=== PATIENT | male | born 1935 | race American Indian/Alaskan Native ===

== ENCOUNTER 2018-06-17 00:18 | Inpatient (IN) | payer MEDICARE ==
[2018-06-17] MEDS ORDERED: ASPIRIN PO ONE (00:49)
--- NOTE | 2018-06-17 01:08 | Emergency Department Report ---
ED Chest Pain HPI - General Chief Complaint: Chest Pain Stated Complaint: VLADIMIR Time Seen by Provider: 06/17/18 00:57 Source: patient, EMS Mode of arrival: Stretcher Limitations: No Limitations - History of Present Illness Initial Comments: Patient is a 83 years old male with history of congestive heart failure, CVA, hypertension and diabetes. Patient brought to the emergency room via EMS. EMS stated that patient initial heart rate was 220 with a blood pressure of 85/43. Patient was given 6 and 12 mg of adenosine and patient was shocked one time at 100 J with no change by EMS. Patient converted to sinus rhythm with a heart rate of 90 by the time he arrived to the emergency room. MD Complaint: chest pain Severity scale (0 -10): 4 - Related Data Previous Rx's Medication Instructions Recorded Last Taken Type Albuterol *Only Ed* [Proventil 2.5 mg IH TIDRT PRN #10 nebu 12/16/14 Unknown Rx 0.5% NEBS] Arformoterol Nebu [Brovana Nebu] 15 mcg IH Q12HRT #10 ml 12/16/14 Unknown Rx Budesonide [Pulmicort Respules] 0.5 mg IH Q12HRT #30 nebu 12/16/14 Unknown Rx Carvedilol [Coreg] 6.25 mg PO BID #60 tablet 12/16/14 Unknown Rx Famotidine [Pepcid] 20 mg PO BID #60 tablet 12/16/14 Unknown Rx Furosemide [Lasix TAB] 40 mg PO QDAY #30 tablet 12/16/14 Unknown Rx HYDROcodone/APAP 5-325 [[place] 1 each PO Q6H PRN #30 tablet 12/16/14 Unknown Rx 5-325 mg TAB] Spironolactone [Aldactone] 12.5 mg PO QDAY #30 tablet 12/16/14 Unknown Rx Tiotropium [Spiriva] 1 puff IH Q24HRT #10 box 12/16/14 Unknown Rx Albuterol *Only Ed* [Proventil 2.5 mg IH TIDRT nebu 07/22/15 Unknown Rx 0.5% NEBS] Carvedilol [Coreg] 6.25 mg PO BID tablet 07/22/15 Unknown Rx Furosemide [Lasix TAB] 40 mg PO QDAY tablet 07/22/15 Unknown Rx metOLazone [Zaroxolyn] 2.5 mg PO QDAY tablet 07/22/15 Unknown Rx Allergies Allergy/AdvReac Type Severity Reaction Status Date / Time Sulfa (Sulfonamide AdvReac Unknown Verified 03/02/13 06:40 Antibiotics) Heart Score - HEART Score History: Moderately suspicious EKG: Non-specific Age: > 65 Risk factors: > 3 risk factors or hx of atherosclerotic disease Troponin: < normal limit HEART Score: 6 - Critical Actions Critical Actions: 4-6 pts:12-16.6% risk of adverse cardiac event. Should be admitted ED Review of Systems ROS: Stated complaint: VLADIMIR Other details as noted in HPI Comment: All other systems reviewed and negative Constitutional: denies: chills, fever Respiratory: orthopnea, shortness of breath, SOB with exertion, SOB at rest. denies: cough, wheezing Cardiovascular: chest pain, palpitations Gastrointestinal: denies: abdominal pain, nausea, vomiting, diarrhea, constipation, hematemesis, melena, hematochezia Genitourinary: denies: urgency, dysuria, frequency, hematuria, discharge Musculoskeletal: denies: back pain Neurological: denies: headache, weakness, numbness, paresthesias, confusion ED Past Medical Hx - Past Medical History Previous Medical History?: Yes Hx Hypertension: Yes Hx CVA: Yes (TIA 12 years ago) Hx Heart Attack/AMI: No Hx Congestive Heart Failure: Yes Hx Diabetes: Yes Hx Deep Vein Thrombosis: Yes Hx Pulmonary Embolism: Yes Hx Sickle Cell Disease: No Hx Headaches / Migraines: No Hx Seizures: No Hx Asthma: Yes Hx COPD: Yes Hx Tuberculosis: No Hx Dementia: No Hx HIV: No Additional medical history: pt wears life vest for defibrillator - Surgical History Past Surgical History?: Yes Hx Coronary Stent: No Hx Pacemaker: No Hx Internal Defibrillator: No Additional Surgical History: Chest tube for pneumothorax - Social History Smoking Status: Never Smoker Substance Use Type: Prescribed - Medications Home Medications: Home Medications Medication Instructions Recorded Confirmed Last Taken Type Albuterol *Only Ed* [Proventil 2.5 mg IH TIDRT PRN #10 nebu 12/16/14 07/21/15 Unknown Rx 0.5% NEBS] Arformoterol Nebu [Brovana Nebu] 15 mcg IH Q12HRT #10 ml 12/16/14 07/21/15 Unknown Rx Budesonide [Pulmicort Respules] 0.5 mg IH Q12HRT #30 nebu 12/16/14 07/21/15 Unknown Rx Carvedilol [Coreg] 6.25 mg PO BID #60 tablet 12/16/14 07/21/15 Unknown Rx Famotidine [Pepcid] 20 mg PO BID #60 tablet 12/16/14 07/21/15 Unknown Rx Furosemide [Lasix TAB] 40 mg PO QDAY #30 tablet 12/16/14 07/21/15 Unknown Rx HYDROcodone/APAP 5-325 [[place] 1 each PO Q6H PRN #30 tablet 12/16/14 07/21/15 Unknown Rx 5-325 mg TAB] Spironolactone [Aldactone] 12.5 mg PO QDAY #30 tablet 12/16/14 07/21/15 Unknown Rx Tiotropium [Spiriva] 1 puff IH Q24HRT #10 box 12/16/14 07/21/15 Unknown Rx Albuterol *Only Ed* [Proventil 2.5 mg IH TIDRT nebu 07/22/15 Unknown Rx 0.5% NEBS] Carvedilol [Coreg] 6.25 mg PO BID tablet 07/22/15 Unknown Rx Furosemide [Lasix TAB] 40 mg PO QDAY tablet 07/22/15 Unknown Rx metOLazone [Zaroxolyn] 2.5 mg PO QDAY tablet 07/22/15 Unknown Rx ED Physical Exam - General Limitations: No Limitations General appearance: alert, in no apparent distress - Head Head exam: Present: atraumatic, normocephalic, normal inspection - Eye Eye exam: Present: normal appearance - ENT ENT exam: Present: mucous membranes moist - Neck Neck exam: Present: normal inspection, full ROM. Absent: tenderness, meningismus - Respiratory Respiratory exam: Present: normal lung sounds bilaterally - Cardiovascular Cardiovascular Exam: Present: regular rate. Absent: systolic murmur, diastolic murmur - GI/Abdominal GI/Abdominal exam: Present: soft, normal bowel sounds. Absent: distended, tenderness, guarding, rebound, rigid, organomegaly, mass, bruit, pulsatile mass - Extremities Exam Extremities exam: Present: normal inspection, full ROM, normal capillary refill. Absent: pedal edema, calf tenderness - Back Exam Back exam: Present: normal inspection. Absent: CVA tenderness (R), CVA tenderness (L) - Neurological Exam Neurological exam: Present: alert, altered, CN II-XII intact - Skin Skin exam: Present: warm, intact, normal color ED Course Vital Signs 06/17/18 06/17/18 06/17/18 00:22 00:30 00:37 Temperature 98.5 F Pulse Rate 94 H 103 H 98 H Respiratory 34 H 24 22 Rate Blood Pressure 117/80 117/59 O2 Sat by Pulse 98 Oximetry 06/17/18 06/17/18 06/17/18 00:45 00:46 01:00 Temperature Pulse Rate 91 H 90 Respiratory 33 H 22 34 H Rate Blood Pressure 112/68 109/71 O2 Sat by Pulse 98 Oximetry 06/17/18 01:15 Temperature Pulse Rate 86 Respiratory 28 H Rate Blood Pressure 107/63 O2 Sat by Pulse Oximetry GENTRY score - Genrty Score Age > 65: (1) Yes Aspirin use within the Past 7 Days: (1) Yes 3 or more CAD Risk Factors: (0) No 2 or more Angina events in past 24 hrs: (1) Yes Known CAD with more than 50% Stenosis: (0) No Elevated Cardiac Markers: (0) No ST Deviation Greater than 0.5mm: (0) No GENTRY Score: 3 ED Medical Decision Making - Lab Data Result diagrams: 06/17/18 00:58 06/17/18 00:58 - EKG Data -: EKG Interpreted by Mi EKG shows normal: sinus rhythm Rate: normal - EKG Data Interpretation: no acute changes 06/17/18 03:02 EMS EKG showed atrial flutter with RVR. - Medical Decision Making Patient is a 83 years old male with history of congestive heart failure, CVA, hypertension and diabetes. Patient brought to the emergency room via EMS. EMS stated that patient initial heart rate was 220 with a blood pressure of 85/43. Patient was given 6 and 12 mg of adenosine and patient was shocked one time at 100 J with no change by EMS. Patient converted to sinus rhythm with a heart rate of 90 by the time he arrived to the emergency room. Patient remained stable in the ER with sinus rhythm. Patient is started on a Cardizem drip. I discussed the patient was Dr. Everett from cardiology was advised that he will follow-up with the patient. I also discussed the patient is Dr. Lynn Laird, she agreed to admit the patient to medical service. Critical Care Time: Yes Critical care attestation.: If time is entered above; I have spent that time in minutes in the direct care of this critically ill patient, excluding procedure time. ED Disposition Clinical Impression: Atrial flutter with rapid ventricular response, Chest pain, Shortness of breath Disposition: OP ADMIT IP TO THIS HOSP Is pt being admited?: Yes Condition: Stable Instructions: Chest Pain (ED)
--- NOTE | 2018-06-17 01:16 | XRay Report ---
PROCEDURE: XR CHEST 1V AP TECHNIQUE: A portable upright view of the chest was obtained. HISTORY: Chest Pain COMPARISONS: None FINDINGS: The heart is mild to moderately enlarged. The lungs are not overtly congested. There is nonspecific p atchy airspace disease in the lower lobes. A small left-sided effusion cannot be excluded. The skelet al structures reveal osteoporosis. IMPRESSION: Cardiomegaly.. No evidence of congestion. Patchy airspace disease in both lower lobes. Possible small left-sided effusion. . This document is electronically signed by Bayron Glover MD., June 17 2018 01:14:53 AM ET
[2018-06-17 01:25] LABS: Basophils % (Auto) 0.2 % (0.0-1.8); Eosinophils % (Auto) 0.4 % (0.0-4.3); Hematocrit 36.5 % (35.5-45.6); Lymphocytes % (Auto) 11.8 % (13.4-35.0); Mean Corpuscular HGB Conc 33 % (32-34); Mean Corpuscular Volume 104 fl (84-94); Monocytes # (Auto) 0.9 K/mm3 (0.0-0.8); Monocytes % (Auto) 11.1 % (0.0-7.3); Platelet Count 215 K/mm3 (140-440); Red Blood Count 3.52 M/mm3 (3.65-5.03)
[2018-06-17 01:34] LABS: INR 1.13 (0.87-1.13)
[2018-06-17 01:35] LABS: Partial Thromboplastin Time 33.3 Sec. (24.2-36.6)
[2018-06-17 01:48] LABS: Calcium 8.6 mg/dL (8.4-10.2)
[2018-06-17] MEDS ORDERED: CARDIZEM 100 MG in D5W 80 ML IV SCH (02:00)
[2018-06-17] MEDS ORDERED: NACL 0.9% 500 ML 500 ML ONE (02:42)
[2018-06-17 06:34] LABS: Chol/HDL Ratio 3.6 %
--- NOTE | 2018-06-17 10:08 | Consultation ---
History of Present Illness Consult date: 06/17/18 Requesting physician: GRABIEL SANCHEZ Consult reason: chest pain, elevated troponin, tachycardia History of present illness: The pt is an 83 YO male with a past medical history of severe dilated CMP, chronic HFrEF, CVA, HTN, HLP, DM, DVT, PE, paroxysmal AFib, NSVT, Alzheimer's dementia. He is followed in our office by Dr. Dickens. Pt is reportedly on hospice and is DNR code status per primary RN. Per our office records, pt and pt's have agreed to conservative cardiac management. Pt states "I'm confused" and also reports SOB. He is a poor historian due to dementia and thus HPI is obtained per the chart. Patient brought to the emergency room via EMS. EMS stated that patient initial heart rate was 220 with a blood pressure of 85/43. Patient was given 6 and 12 mg of adenosine and patient was shocked one time at 100 J with no change by EMS. Patient converted to sinus rhythm with a heart rate of 90 by the time he arrived to the emergency room. No strips on chart available for review. Pt was initiated on cardizem gtt overnight and has maintained NSR. Echo done 03/2014 showed severe dilated CMP with 4 chamber dilation, EF 10%, severe MR, moderately severe TR, pulm HTN with RVSP 62mmHg, trace pericardial effusion, left pleural effusion. Past History Past Medical History: diabetes, DVT, heart failure, hypertension, hyperlipidemia, pulmonary embolism, other (dementia) Medications and Allergies Allergies Allergy/AdvReac Type Severity Reaction Status Date / Time Sulfa (Sulfonamide AdvReac Unknown Verified 03/02/13 06:40 Antibiotics) Home Medications Medication Instructions Recorded Confirmed Last Taken Type Albuterol *Only Ed* [Proventil 2.5 mg IH TIDRT PRN #10 nebu 12/16/14 07/21/15 Unknown Rx 0.5% NEBS] Arformoterol Nebu [Brovana Nebu] 15 mcg IH Q12HRT #10 ml 12/16/14 07/21/15 Unknown Rx Budesonide [Pulmicort Respules] 0.5 mg IH Q12HRT #30 nebu 12/16/14 07/21/15 Unknown Rx Carvedilol [Coreg] 6.25 mg PO BID #60 tablet 12/16/14 07/21/15 Unknown Rx Famotidine [Pepcid] 20 mg PO BID #60 tablet 12/16/14 07/21/15 Unknown Rx Furosemide [Lasix TAB] 40 mg PO QDAY #30 tablet 12/16/14 07/21/15 Unknown Rx HYDROcodone/APAP 5-325 [[place] 1 each PO Q6H PRN #30 tablet 12/16/14 07/21/15 Unknown Rx 5-325 mg TAB] Spironolactone [Aldactone] 12.5 mg PO QDAY #30 tablet 12/16/14 07/21/15 Unknown Rx Tiotropium [Spiriva] 1 puff IH Q24HRT #10 box 12/16/14 07/21/15 Unknown Rx Albuterol *Only Ed* [Proventil 2.5 mg IH TIDRT nebu 07/22/15 Unknown Rx 0.5% NEBS] Carvedilol [Coreg] 6.25 mg PO BID tablet 07/22/15 Unknown Rx Furosemide [Lasix TAB] 40 mg PO QDAY tablet 07/22/15 Unknown Rx metOLazone [Zaroxolyn] 2.5 mg PO QDAY tablet 07/22/15 Unknown Rx Active Meds: Active Medications Diltiazem HCl 100 mg/ Dextrose 100 mls @ 5 mls/hr IV DIRECT GABRIELLA; Protocol Last Infusion: 06/17/18 09:46 Dose: Infused Documented by: Review of Systems Cardiovascular: shortness of breath, no chest pain, no palpitations, no rapid/irregular heart beat, no edema, no syncope, no lightheadedness Respiratory: shortness of breath Physical Examination Vital Signs Pulse Resp 94 H 34 H 06/17/18 00:22 06/17/18 00:22 General appearance: no acute distress HEENT: Positive: PERRL, Normocephaly, Mucus Membranes Moist Neck: Positive: neck supple, trachea midline Cardiac: Positive: Reg Rate and Rhythm, S1/S2 Lungs: Positive: Decreased Breath Sounds, Rhonchi Neuro: Positive: Grossly Intact Abdomen: Negative: Tender Skin: Negative: Rash, Wound Musculoskeletal: No Pain Extremities: Absent: edema Results 06/17/18 10:57 06/17/18 00:58 Coagulation 06/17/18 Range/Units 00:58 PT 15.2 H (12.2-14.9) Sec. INR 1.13 (0.87-1.13) APTT 33.3 (24.2-36.6) Sec. Lipids 06/17/18 Range/Units 03:33 Triglycerides 88 (2-149) mg/dL Cholesterol 162 (50-199) mg/dL HDL Cholesterol 45 (40-59) mg/dL Cholesterol/HDL Ratio 3.60 % CBC 06/17/18 Range/Units 00:58 WBC 8.4 (4.5-11.0) K/mm3 RBC 3.52 L (3.65-5.03) M/mm3 Hgb 12.0 (11.8-15.2) gm/dl Hct 36.5 (35.5-45.6) % Plt Count 215 (140-440) K/mm3 Lymph # 1.0 L (1.2-5.4) K/mm3 [place] # 0.9 H (0.0-0.8) K/mm3 Eos # 0.0 (0.0-0.4) K/mm3 Baso # 0.0 (0.0-0.1) K/mm3 Comprehensive Metabolic Panel 06/17/18 Range/Units 00:58 Sodium 143 (137-145) mmol/L Potassium 4.4 (3.6-5.0) mmol/L Chloride 97.5 L (98-107) mmol/L Carbon Dioxide 27 (22-30) mmol/L BUN 40 H (9-20) mg/dL Creatinine 1.5 (0.8-1.5) mg/dL Glucose 163 H (75-100) mg/dL Calcium 8.6 (8.4-10.2) mg/dL - Imaging and Cardiology Echo: report reviewed ( 03/2014 showed severe dilated CMP with 4 chamber dilation, EF 10%, severe MR, moderately severe TR, pulm HTN with RVSP 62mmHg, trace pericardial effusion, left pleural effusion. ) EKG: report reviewed, image reviewed EKG interpretations - Telemetry EKG Rhythm: Sinus Rhythm - EKG Sinus rhythms and dysrhythmias: sinus rhythm Assessment and Plan D/c cardizem gtt. Cont all other present cardiac management. Pt may tx to telemetry. Obtain echo. Of note, pt is reportedly on hospice and is DNR code status per primary RN. Per our office records, pt and pt's have agreed to conservative cardiac management. The patient has been seen in conjunction with Dr. Andi Lanza who agrees with the assessment and plan of care. - Patient Problems (1) SVT (supraventricular tachycardia) Current Visit: Yes Status: Suspected (2) Acute on chronic systolic heart failure Current Visit: Yes Status: Acute (3) Dilated cardiomyopathy Current Visit: Yes Status: Chronic (4) NSTEMI (non-ST elevated myocardial infarction) Current Visit: Yes Status: Acute Plan to address problem: type 2 (5) Pneumonia Current Visit: Yes Status: Suspected Qualifiers: Laterality: right Lung location: lower lobe of lung (6) Hypotension Current Visit: Yes Status: Acute (7) Diabetes Current Visit: Yes Status: Chronic (8) Alzheimer's dementia Current Visit: Yes Status: Chronic (9) History of DVT (deep vein thrombosis) Current Visit: No Status: Chronic (10) History of pulmonary embolus (PE) Current Visit: No Status: Chronic (11) Hyperlipidemia Current Visit: Yes Status: Chronic (12) Paroxysmal atrial fibrillation Current Visit: Yes Status: Chronic
[2018-06-17] MEDS ORDERED: HEPARIN/ 0.45% NACL-25,000 UNIT/500 ML 25,000 UNIT/500 ML BAG ONE (10:16)
[2018-06-17 10:23] LABS: INR 1.22 (0.87-1.13)
[2018-06-17 10:24] LABS: Partial Thromboplastin Time 34.9 Sec. (24.2-36.6)
[2018-06-17] MEDS ORDERED: NON-FORMULARY (Albuterol *Only Ed* [Proventil 0.5% Nebs] 2.5 MG) IH PRN (10:34)
--- NOTE | 2018-06-17 10:41 | History and Physical Report ---
History of Present Illness Date of examination: 06/17/18 Date of admission: 06/17/18 04:50 Chief complaint: shortness of breath History of present illness: Patient is an 83 y/o male who has a history of T2DM, dementia, chronic systolic heart failure, CVA praosxismal Afib and PE presented with progressivly worsening shortness of breath, running nose and cough. He was not able to give any coherent history therefore most of the history was obtained from the medical record and from patient's . Pt was is on home hospice and DNR. He is being seen by line up worker, Dr Taylor for his P AFib and conservatively management per request of patient's . Echo done 03/2014 showed severe dilated CMP with 4 chamber dilation, EF 10%, severe MR, moderately severe TR, pulm HTN with RVSP 62mmHg, trace pericardial effusion, left pleural effusion. Enroute to the Ed pt was given adenosine by EMS and one shock of 100 J as hear rate was in the 200s. On arriveal to the ED pt was commenced on cardazem drip. Had elevated cardiac enzymes of 0.129 with heart rate converted to NSR. Past History Past Medical History: CAD, hypertension, pulmonary embolism, other (afib) Past Surgical History: No surgical history Social history: denies: smoking, alcohol abuse, prescription drug abuse Medications and Allergies Allergies Allergy/AdvReac Type Severity Reaction Status Date / Time Sulfa (Sulfonamide AdvReac Unknown Verified 03/02/13 06:40 Antibiotics) Home Medications Medication Instructions Recorded Confirmed Last Taken Type Spironolactone [Aldactone] 12.5 mg PO QDAY #30 tablet 12/16/14 06/17/18 Unknown Rx Aspirin [Aspir-Low] 81 mg PO DAILY 06/17/18 06/17/18 Unknown History Benzonatate [Tessalon Perles] 100 mg PO Q8HR 06/17/18 06/17/18 Unknown History Ergocalciferol (Vitamin D2) 2,000 unit PO DAILY 06/17/18 06/17/18 Unknown History [Vitamin D2] Furosemide [Lasix TAB] 40 mg PO BID 06/17/18 06/17/18 Unknown History Prednisone [predniSONE (Tammy) ER 5 mg PO QDAY 06/17/18 06/17/18 Unknown History TAB] Active Meds: Active Medications Arformoterol Tartrate (Brovana Nebu) 15 mcg IH Q12HRT [facility] Budesonide (Pulmicort) 0.5 mg IH Q12HRT [facility] Carvedilol (Coreg) 3.125 mg PO BID [facility] Carvedilol (Coreg) 6.25 mg PO BID [facility] Furosemide (Lasix) 20 mg IV QDAY [facility] Heparin Sodium (Porcine) (Heparin 10,000 Units/10 Ml) 2,900 unit 40 unit/kg (2900 unit) IV ONCE ONE Stop: 06/17/18 10:32 Diltiazem HCl 100 mg/ Dextrose 100 mls @ 5 mls/hr IV DIRECT GABRIELLA; Protocol Last Infusion: 06/17/18 09:46 Dose: Infused Documented by: Lisinopril (Zestril) 10 mg PO QDAY [facility] Miscellaneous Medication (Albuterol *Only Ed* [Proventil 0.5% Nebs]) 2.5 mg IH TIDRT PRN PRN Reason: Shortness Of Breath Spironolactone (Aldactone) 12.5 mg PO QDAY [facility] Tiotropium [place] (Spiriva) 1 puff IH Q24HRT [facility] Review of systems Constitutional: Confused. Head: NC/ AT Eyes: Denies any visual impairments. No discharge from the eyes Nose: Denies any rhinorrhea or epistaxis Throats: Denies any post nasal drainage. Ears: Denies any hearing deficits Cardiovascular system: Has, shortness of breath, orthopnea, paroxysmal nocturnal dyspnea, or palpitation. Respiratory system: Denies any cough, difficulty breathing, wheezing, pleuritic chest pain, Gastrointestinal system: Denies any abdominal pain, nausea vomiting, hematemesis or melena. Neurological system: Denies any headache, slurred speech, facial droop, lateralizing weakness Genitalia system: Denies any dysuria, urinary frequency or urgency, urethral discharge Skin: No rashes, hyperpigmented spots. Hematological: Denies any cervical tenderness hemorrhages or petechia. Immunological: Denies any multiple septic spots, Lymphatic: Denies any generalized lymphadenopathy. Endocrine: Denies any polyuria, polydipsia, polyphagia. No heat or cold intolerance. Musculoskeletal system: No joint pain or swelling. Psych: No visual, tactile, auditory or hallucination Exam - Physical Exam Narrative exam: Constitutional: Confused and demented. In no distress Head: Normocephalic atraumatic Eyes: Pupils are equal round and reactive to light Nose: Rhinorrhea. No enlarged turbinates, no septal deviation. Mouth: Moist mucous membranes. Neck: Supple no thyromegaly. No bruit. No JVD Heart: Irregularly irregular . S1 and S2 normal. No rubs murmurs or gallop Lungs: Clear to auscultation bilaterally. no rales or rhonchi Abdomen: Soft, nontender. Bowel sound are present. Extremities: No edema, no cyanosis, no clubbing. Neuro: Alert oriented Oriented x1. No focal sensory or motor deficit. Skin: No rashes or hyperpigmented spots Musculoskeletal system: No joint pain or swelling Hematological: No petechia or subcutanous hemorrhages. Immunological: No multiple septic spots on the skin Lymphatic: No generalized lymphadenopathy Psychiatry: Confused . - Constitutional Vitals: Temp Pulse Resp BP Pulse Ox 98.5 F 77 19 130/72 98 06/17/18 00:37 06/17/18 09:01 06/17/18 09:01 06/17/18 09:01 06/17/18 09:20 Results - Labs CBC & Chem 7: 06/18/18 05:42 06/18/18 05:42 Labs: Abnormal lab results 06/17/18 06/17/18 06/17/18 Range/Units 00:58 00:58 00:58 RBC 3.52 L (3.65-5.03) M/mm3 MCV 104 H (84-94) fl MCH 34 H (28-32) pg Lymph % (Auto) 11.8 L (13.4-35.0) % [place] % (Auto) 11.1 H (0.0-7.3) % Lymph # 1.0 L (1.2-5.4) K/mm3 [place] # 0.9 H (0.0-0.8) K/mm3 Seg Neutrophils % 76.5 H (40.0-70.0) % PT 15.2 H (12.2-14.9) Sec. INR (0.87-1.13) POC ABG pH (7.35-7.45) Chloride 97.5 L (98-107) mmol/L BUN 40 H (9-20) mg/dL Glucose 163 H (75-100) mg/dL Troponin T 0.094 H (0.00-0.029) ng/mL 06/17/18 06/17/18 06/17/18 Range/Units 03:33 04:10 07:09 RBC (3.65-5.03) M/mm3 MCV (84-94) fl MCH (28-32) pg Lymph % (Auto) (13.4-35.0) % [place] % (Auto) (0.0-7.3) % Lymph # (1.2-5.4) K/mm3 [place] # (0.0-0.8) K/mm3 Seg Neutrophils % (40.0-70.0) % PT (12.2-14.9) Sec. INR (0.87-1.13) POC ABG pH 7.615 H (7.35-7.45) Chloride (98-107) mmol/L BUN (9-20) mg/dL Glucose (75-100) mg/dL Troponin T 0.154 H* D 0.126 H* (0.00-0.029) ng/mL 06/17/18 Range/Units 09:25 RBC (3.65-5.03) M/mm3 MCV (84-94) fl MCH (28-32) pg Lymph % (Auto) (13.4-35.0) % [place] % (Auto) (0.0-7.3) % Lymph # (1.2-5.4) K/mm3 [place] # (0.0-0.8) K/mm3 Seg Neutrophils % (40.0-70.0) % PT 16.2 H (12.2-14.9) Sec. INR 1.22 H (0.87-1.13) POC ABG pH (7.35-7.45) Chloride (98-107) mmol/L BUN (9-20) mg/dL Glucose (75-100) mg/dL Troponin T (0.00-0.029) ng/mL Assessment and Plan Patient is an 83 y/o male who has a history of T2DM, dementia, chronic systolic heart failure, CVA praosxismal Afib and PE presented with progressivly worsening shortness of breath, running nose and cough. He was not able to give any coherent history therefore most of the history was obtained from the medical record and from patient's . Pt was is on home hospice and DNR. He is being seen by line up worker, Dr Taylor for his P AFib and conservatively management per request of patient's . Echo done 03/2014 showed severe dilated CMP with 4 chamber dilation, EF 10%, severe MR, moderately severe TR, pulm HTN with RVSP 62mmHg, trace pericardial effusion, left pleural effusion. Enroute to the Ed pt was given adenosine by EMS and one shock of 100 J as hear rate was in the 200s. On arriveal to the ED pt was commenced on cardazem drip. Had elevated cardiac enzymes of 0.129 with heart rate converted to NSR. -Paroxysmal atrial fibrillation Continue beta blockers and present and a tanesha Anticoagulation TSH, lipid panel Cardiology consult - Acute and chronic systolic heart failure Strict inputs and outputs, 2 g sodium diet, Daily weights, Echocardiogram -NSTEMI Heparin drip Aspirin, beta tanesha, statins, -Sinusitis Axithromycin - Dementia DVT ppx with heparin and GI with Pepcid Time spent 40 min Pt is DNR
[2018-06-17] MEDS: HEPARIN 10,000 UNITS/10 ML IV ONE ×2 (11:00→11:28)
[2018-06-17] MEDS ORDERED: HEPARIN ONE (11:11)
[2018-06-17 11:42] LABS: Hemoglobin 12.1 gm/dl (11.8-15.2)
[2018-06-17] MEDS: BROVANA NEBU IH SCH ×2 (11:57→21:28)
[2018-06-17] MEDS ORDERED: PULMICORT IH ONE (11:58)
[2018-06-17] MEDS: PULMICORT IH SCH ×2 (11:58→21:28)
[2018-06-17] MEDS ORDERED: BROVANA NEBU IH ONE (11:59)
[2018-06-17] MEDS ORDERED: COREG ONE (12:04)
[2018-06-17] MEDS: COREG PO SCH ×2 (12:07→23:52)
[2018-06-17] MEDS: SOLU-Medrol IV SCH ×2 (12:08→23:01)
[2018-06-17] MEDS ORDERED: PROVENTIL IH PRN (12:26)
[2018-06-17] MEDS: ALDACTONE PO SCH (13:07)
[2018-06-17] MEDS: ZITHROMAX 500 MG in NACL 0.9% 250ML 250 ML IV SCH (13:08)
[2018-06-17] MEDS ORDERED: LOPRESSOR IV ONE (21:27)
[2018-06-17] MEDS ORDERED: CARDIZEM IV ONE (21:27)
[2018-06-17] MEDS ORDERED: COREG PO SCH (22:00)
[2018-06-17] MEDS ORDERED: BENADRYL IV ONE (22:45)
[2018-06-17] MEDS: HEPARIN SUB-Q SCH (23:07)
[2018-06-18] MEDS ORDERED: LOPRESSOR IV ONE (00:30)
[2018-06-18 06:08] LABS: Hematocrit 34.2 % (35.5-45.6); Hemoglobin 11.7 gm/dl (11.8-15.2); Mean Corpuscular HGB Conc 34 % (32-34); Mean Corpuscular Volume 102 fl (84-94); Platelet Count 222 K/mm3 (140-440); Red Blood Count 3.35 M/mm3 (3.65-5.03); Red Cell Distribution Width 13.9 % (13.2-15.2)
[2018-06-18] MEDS: HEPARIN SUB-Q SCH (06:19)
--- NOTE | 2018-06-18 06:24 | Event Note ---
Date: 06/17/18 Code met Patient's heart rate greater than 280s Adenosine 6, 12 good and weight very little response Slowed down with IV Lopressor The high probability of a clinically significant, sudden or life threatening deterioration of the [CV, GI, respiratory] system(s) required my full and direct attention, intervention and personal management. The aggregate critical care time was [35 ] minutes. This time is in addition to time spent performing reported procedures but includes the following: x] Data Review and interpretation [x] Patient assessment and monitoring of vital signs [x] Documentation [x] Medication orders and management
[2018-06-18 06:47] LABS: Alanine Aminotransferase 15 units/L (7-56); Albumin 3.5 g/dL (3.9-5); BUN/Creatinine Ratio 32; Blood Urea Nitrogen 42 mg/dL (9-20); Calcium 8.8 mg/dL (8.4-10.2); Hemolysis Index 2
[2018-06-18 07:49] LABS: Band Neutrophils # (Manual) 0.4 K/mm3; Basophils % (Manual) 0 % (0.0-1.8); Eosinophils % (Manual) 0 % (0.0-4.3); Ovalocytes Few; Platelet Estimate Appe; Total Cells Counted 100
[2018-06-18] MEDS: PULMICORT IH SCH ×2 (08:04→20:31)
[2018-06-18] MEDS: BROVANA NEBU IH SCH ×2 (08:04→20:31)
--- NOTE | 2018-06-18 08:53 | Progress Note ---
Assessment and Plan -Paroxysmal atrial fibrillation Continue beta blockers and calcium channel blockers Anticoagulation TSH, lipid panel Cardiology consult - Acute and chronic systolic heart failure Strict inputs and outputs, 2 g sodium diet, Daily weights, Echocardiogram -NSTEMI Heparin drip Aspirin, beta tanesha, statins, -Sinusitis Azithromycin - Dementia Not on any meds per request DVT ppx with heparin and GI with Pepcid Time spent 40 min Pt is DNR Subjective Date of service: 06/18/18 Principal diagnosis: paroxysmal atrial fibrillation, NSTEMI, acute on chronic systolic HF Interval history: Patient seen and examined. Discussed with patient's nurse. Patient had an episode of V. tach last night. Confused and wanted to jump out of the bed. Code MET called. Adenosine 6 and 12 given. Heart rate converted to normal. Currently restrained. Still pleansantly confused. Unable to give any cogent history. Objective - Exam Narrative Exam: Constitutional: Confused and demented. Restrainded. In no distress Head: Normocephalic atraumatic Eyes: Pupils are equal round and reactive to light Nose: Rhinorrhea. No enlarged turbinates, no septal deviation. Mouth: Moist mucous membranes. Neck: Supple no thyromegaly. No bruit. No JVD Heart: Irregularly irregular . S1 and S2 normal. No rubs murmurs or gallop Lungs: Clear to auscultation bilaterally. no rales or rhonchi Abdomen: Soft, nontender. Bowel sound are present. Extremities: No edema, no cyanosis, no clubbing. Neuro: Alert oriented Oriented x1. No focal sensory or motor deficit. Skin: No rashes or hyperpigmented spots Musculoskeletal system: No joint pain or swelling Hematological: No petechia or subcutanous hemorrhages. Immunological: No multiple septic spots on the skin Lymphatic: No generalized lymphadenopathy Psychiatry: Confused . - Constitutional Vitals: Vital Signs - 12hr 06/17/18 06/17/18 06/17/18 21:43 22:00 23:52 Temperature 97.8 F Pulse Rate 78 210 H 78 Pulse Rate [ 90 From Monitor] Respiratory 24 Rate Blood Pressure 129/76 Blood Pressure 129/76 [Left] O2 Sat by Pulse 90 97 Oximetry 06/18/18 06/18/18 06/18/18 00:00 01:22 03:20 Temperature 98.2 F Pulse Rate 64 180 H 128 H Pulse Rate [ From Monitor] Respiratory 22 Rate Blood Pressure 159/105 174/120 Blood Pressure 159/103 [Left] O2 Sat by Pulse 89 Oximetry 06/18/18 06/18/18 03:21 04:42 Temperature 98.0 F Pulse Rate 128 H 88 Pulse Rate [ From Monitor] Respiratory 22 Rate Blood Pressure 174/120 Blood Pressure 139/77 [Left] O2 Sat by Pulse 94 Oximetry - Labs CBC & Chem 7: 06/18/18 05:42 06/18/18 05:42 Labs: Abnormal lab results 06/17/18 06/17/18 06/17/18 Range/Units 09:25 10:57 12:19 RBC (3.65-5.03) M/mm3 Hgb (11.8-15.2) gm/dl Hct (35.5-45.6) % MCV (84-94) fl MCH (28-32) pg Seg Neuts % (Manual) (40.0-70.0) % Lymphocytes % (Manual) (13.4-35.0) % Seg Neutrophils # Man (1.8-7.7) K/mm3 Lymphocytes # (Manual) (1.2-5.4) K/mm3 PT 16.2 H (12.2-14.9) Sec. INR 1.22 H (0.87-1.13) Heparin Anti-Xa Level (0.3-0.7) U.I./ml Sodium (137-145) mmol/L BUN (9-20) mg/dL Glucose (75-100) mg/dL Magnesium 2.40 H (1.7-2.3) mg/dL AST (5-40) units/L Troponin T 0.129 H* (0.00-0.029) ng/mL Albumin (3.9-5) g/dL 06/17/18 06/18/18 06/18/18 Range/Units 17:30 05:42 05:42 RBC 3.35 L (3.65-5.03) M/mm3 Hgb 11.7 L (11.8-15.2) gm/dl Hct 34.2 L (35.5-45.6) % MCV 102 H (84-94) fl MCH 35 H (28-32) pg Seg Neuts % (Manual) 89.0 H (40.0-70.0) % Lymphocytes % (Manual) 5.0 L (13.4-35.0) % Seg Neutrophils # Man 9.0 H (1.8-7.7) K/mm3 Lymphocytes # (Manual) 0.5 L (1.2-5.4) K/mm3 PT (12.2-14.9) Sec. INR (0.87-1.13) Heparin Anti-Xa Level 0.82 H (0.3-0.7) U.I./ml Sodium 146 H (137-145) mmol/L BUN 42 H (9-20) mg/dL Glucose 147 H (75-100) mg/dL Magnesium (1.7-2.3) mg/dL AST 51 H (5-40) units/L Troponin T 0.094 H (0.00-0.029) ng/mL Albumin 3.5 L (3.9-5) g/dL
[2018-06-18 09:23] LABS: Hemoglobin 11.5 gm/dl (11.8-15.2)
[2018-06-18 09:36] LABS: INR 1.21 (0.87-1.13)
[2018-06-18 09:37] LABS: Partial Thromboplastin Time 44.3 Sec. (24.2-36.6)
[2018-06-18] MEDS ORDERED: ASPIRIN PO SCH (10:00)
[2018-06-18] MEDS: COREG PO SCH ×2 (10:23→22:40)
[2018-06-18] MEDS: ALDACTONE PO SCH (10:24)
[2018-06-18] MEDS: SOLU-Medrol IV SCH ×2 (10:24→22:40)
[2018-06-18] MEDS: LASIX IV SCH (10:25)
[2018-06-18] MEDS: ZESTRIL PO SCH (10:25)
[2018-06-18] MEDS: HEPARIN/ 0.45% NACL-25,000 UNIT/500 ML 25,000 UNIT/500 ML BAG IV SCH ×2 (10:35→17:44)
[2018-06-18] MEDS: ZITHROMAX 500 MG in NACL 0.9% 250ML 250 ML IV SCH (11:33)
[2018-06-18] MEDS: SPIRIVA IH SCH (11:38)
--- NOTE | 2018-06-18 13:16 | Progress Note ---
Assessment and Plan Echo reviewed - EF 35-40%, LA severely dilated, RV mildly dilated, RA mildly dilated, mild AR, mod to severe MR, mod pulm HTN, mod pleural effusion. Pt noted to have several bouts of SVT overnight. Pt with borderline low BPs. Initiate amiodarone. Of note, pt is reportedly on hospice and is DNR code status per primary RN. Per our office records, pt and pt's have agreed to conservative cardiac management. The patient has been seen in conjunction with Dr. Andi Lanza who agrees with the assessment and plan of care. - Patient Problems (1) Paroxysmal SVT (supraventricular tachycardia) Current Visit: Yes Status: Acute (2) Acute on chronic systolic heart failure Current Visit: Yes Status: Acute (3) Dilated cardiomyopathy Current Visit: Yes Status: Chronic (4) NSTEMI (non-ST elevated myocardial infarction) Current Visit: Yes Status: Acute (5) Pneumonia Current Visit: Yes Status: Suspected Qualifiers: Laterality: right Lung location: lower lobe of lung (6) Hypotension Current Visit: Yes Status: Acute (7) Diabetes Current Visit: Yes Status: Chronic (8) Alzheimer's dementia Current Visit: Yes Status: Chronic (9) History of DVT (deep vein thrombosis) Current Visit: No Status: Chronic (10) History of pulmonary embolus (PE) Current Visit: No Status: Chronic (11) Hyperlipidemia Current Visit: Yes Status: Chronic (12) Paroxysmal atrial fibrillation Current Visit: Yes Status: Chronic (13) Moderate to severe mitral regurgitation Current Visit: Yes Status: Chronic Subjective Date of service: 06/18/18 Principal diagnosis: paroxysmal atrial fibrillation, NSTEMI, acute on chronic systolic HF Interval history: pt resting in bed, confused, restrained, no apparent distress. he was noted to have several episodes of SVT overnight. currently in SR. Objective Last Vital Signs Temp 97.2 F L 06/18/18 12:23 Pulse 82 06/18/18 12:23 Resp 16 06/18/18 12:23 BP 108/71 06/18/18 12:23 Pulse Ox 91 06/18/18 12:23 - Physical Examination General: No Apparent Distress HEENT: Positive: PERRL, Normocephaly, Mucus Membranes Moist Neck: Positive: neck supple, trachea midline Cardiac: Positive: Reg Rate and Rhythm, S1/S2 Lungs: Positive: Decreased Breath Sounds Neuro: Positive: Grossly Intact Abdomen: Negative: Tender Skin: Negative: Rash, Wound Musculoskeletal: No Pain Extremities: Absent: edema - Labs and Meds Cardiac Enzymes 06/18/18 Range/Units 05:42 AST 51 H (5-40) units/L Coagulation 06/18/18 Range/Units 08:51 PT 16.1 H (12.2-14.9) Sec. INR 1.21 H (0.87-1.13) APTT 44.3 H (24.2-36.6) Sec. CBC 06/18/18 06/18/18 Range/Units 05:42 08:51 WBC 10.1 (4.5-11.0) K/mm3 RBC 3.35 L (3.65-5.03) M/mm3 Hgb 11.7 L 11.5 L (11.8-15.2) gm/dl Hct 34.2 L 34.0 L (35.5-45.6) % Plt Count 222 214 (140-440) K/mm3 Comprehensive Metabolic Panel 06/18/18 Range/Units 05:42 Sodium 146 H (137-145) mmol/L Potassium 4.6 (3.6-5.0) mmol/L Chloride 103.8 (98-107) mmol/L Carbon Dioxide 25 (22-30) mmol/L BUN 42 H (9-20) mg/dL Creatinine 1.3 (0.8-1.5) mg/dL Glucose 147 H (75-100) mg/dL Calcium 8.8 (8.4-10.2) mg/dL AST 51 H (5-40) units/L ALT 15 (7-56) units/L Alkaline Phosphatase 123 (35-129) units/L Total Protein 7.0 (6.3-8.2) g/dL Albumin 3.5 L (3.9-5) g/dL - Imaging and Cardiology EKG: report reviewed, image reviewed Echo: report reviewed ( 03/2014 showed severe dilated CMP with 4 chamber dilation, EF 10%, severe MR, moderately severe TR, pulm HTN with RVSP 62mmHg, trace pericardial effusion, left pleural effusion. ) - EKG Sinus rhythms and dysrhythmias: sinus rhythm
[2018-06-18] MEDS: TESSALON PERLES PO SCH ×2 (15:05→22:40)
[2018-06-18] MEDS: CORDARONE PO SCH (22:40)
[2018-06-19 05:36] LABS: Basophils % (Auto) 0.2 % (0.0-1.8); Hematocrit 33.2 % (35.5-45.6); Hemoglobin 10.7 gm/dl (11.8-15.2); Lymphocytes # (Auto) 0.6 K/mm3 (1.2-5.4); Lymphocytes % (Auto) 4.3 % (13.4-35.0); Mean Corpuscular HGB Conc 32 % (32-34); Mean Corpuscular Volume 104 fl (84-94); Monocytes # (Auto) 1.2 K/mm3 (0.0-0.8); Monocytes % (Auto) 8.7 % (0.0-7.3); Platelet Count 240 K/mm3 (140-440); Red Cell Distribution Width 14.9 % (13.2-15.2)
[2018-06-19 06:00] LABS: Albumin 3.2 g/dL (3.9-5); Calcium 8.7 mg/dL (8.4-10.2)
[2018-06-19] MEDS: TESSALON PERLES PO SCH ×3 (06:14→23:36)
[2018-06-19] MEDS: BROVANA NEBU IH SCH ×2 (07:58→22:05)
[2018-06-19] MEDS: PULMICORT IH SCH ×2 (07:58→22:05)
[2018-06-19] MEDS: SPIRIVA IH SCH (09:19)
[2018-06-19] MEDS: ALDACTONE PO SCH (10:24)
[2018-06-19] MEDS: HALFPRIN EC PO SCH (10:24)
[2018-06-19] MEDS: COREG PO SCH ×2 (10:24→23:37)
[2018-06-19] MEDS: ZITHROMAX 500 MG in NACL 0.9% 250ML 250 ML IV SCH (10:24)
[2018-06-19] MEDS: ZESTRIL PO SCH (10:25)
[2018-06-19] MEDS: CORDARONE PO SCH ×2 (10:25→23:35)
[2018-06-19] MEDS: SOLU-Medrol IV SCH ×2 (10:25→23:36)
[2018-06-19] MEDS: LASIX IV SCH (10:25)
[2018-06-19] MEDS ORDERED: ATIVAN IV ONE (11:15)
[2018-06-19] MEDS ORDERED: CORDARONE 150 MG in D5W 97 ML IV ONE (11:16)
[2018-06-19] MEDS ORDERED: CORDARONE IV ONE (11:30)
[2018-06-19] MEDS ORDERED: CORDARONE 150 MG in D5W 100 ML IV ONE (11:59)
[2018-06-19] MEDS ORDERED: CORDARONE 900 MG in D5W 482 ML IV SCH (12:00)
--- NOTE | 2018-06-19 12:23 | Progress Note ---
Assessment and Plan Patient had ventricular tachycardia this morning requiring IV amiodarone and a drip. Discussed with Dr. Scooby decker. Continue current management. Prognosis is guarded - Patient Problems (1) Acute on chronic systolic heart failure Current Visit: Yes Status: Acute (2) NSTEMI (non-ST elevated myocardial infarction) Current Visit: Yes Status: Acute (3) Paroxysmal SVT (supraventricular tachycardia) Current Visit: Yes Status: Acute (4) Moderate to severe mitral regurgitation Current Visit: Yes Status: Chronic (5) NSVT (nonsustained ventricular tachycardia) Current Visit: No Status: Acute (6) COPD (chronic obstructive pulmonary disease) Current Visit: No Status: Chronic Subjective Date of service: 06/19/18 Principal diagnosis: paroxysmal atrial fibrillation, NSTEMI, acute on chronic systolic HF Interval history: Code Met was called this morning due to ventricular tachycardia. Patient converted to sinus rhythm. Patient is started on amiodarone drip after a bolus. Case discussed with Dr. Ge.. Objective Vital Signs Temp Pulse Pulse Resp Resp BP Pulse Ox 06/19/18 11:54 97.8 F 18 92/58 06/19/18 10:00 73 06/19/18 08:12 68 18 06/19/18 08:00 56 L 16 92 06/19/18 07:40 97.9 F 18 132/76 06/19/18 04:00 98.4 F 73 18 132/80 89 06/18/18 22:40 74 127/74 06/18/18 22:07 98.0 F 70 20 86 06/18/18 20:32 74 16 95 06/18/18 19:58 97.3 F L 67 16 127/74 100 06/18/18 15:41 98.5 F 72 20 139/92 92 06/18/18 12:23 97.2 F L 82 16 108/71 91 - Physical Examination General: No Apparent Distress HEENT: Positive: PERRL, Normocephaly, Mucus Membranes Moist Neck: Positive: neck supple, trachea midline Cardiac: Positive: Regular Rhythm Lungs: Positive: clear to auscultation Neuro: Positive: Grossly Intact Abdomen: Positive: Soft. Negative: Tender Skin: Negative: Rash, Wound Musculoskeletal: No Pain Extremities: Absent: edema - Labs and Meds Cardiac Enzymes 06/19/18 Range/Units 04:36 AST 64 H (5-40) units/L CBC 06/19/18 Range/Units 04:36 WBC 14.1 H (4.5-11.0) K/mm3 RBC 3.20 L (3.65-5.03) M/mm3 Hgb 10.7 L (11.8-15.2) gm/dl Hct 33.2 L (35.5-45.6) % Plt Count 240 (140-440) K/mm3 Lymph # 0.6 L (1.2-5.4) K/mm3 Hart # 1.2 H (0.0-0.8) K/mm3 Eos # 0.0 (0.0-0.4) K/mm3 Baso # 0.0 (0.0-0.1) K/mm3 Comprehensive Metabolic Panel 06/18/18 06/19/18 Range/Units 23:25 04:36 Sodium 143 (137-145) mmol/L Potassium 4.3 4.9 (3.6-5.0) mmol/L Chloride 101.0 (98-107) mmol/L Carbon Dioxide 24 (22-30) mmol/L BUN 47 H (9-20) mg/dL Creatinine 1.4 (0.8-1.5) mg/dL Glucose 143 H (75-100) mg/dL Calcium 8.7 (8.4-10.2) mg/dL AST 64 H (5-40) units/L ALT 19 (7-56) units/L Alkaline Phosphatase 113 (35-129) units/L Total Protein 6.8 (6.3-8.2) g/dL Albumin 3.2 L (3.9-5) g/dL - Imaging and Cardiology EKG: report reviewed, image reviewed Echo: report reviewed ( 03/2014 showed severe dilated CMP with 4 chamber dilation, EF 10%, severe MR, moderately severe TR, pulm HTN with RVSP 62mmHg, trace pericardial effusion, left pleural effusion. ) - EKG Sinus rhythms and dysrhythmias: sinus rhythm
--- NOTE | 2018-06-19 17:45 | Progress Note ---
Assessment and Plan Patient is an 83 y/o male who has a history of T2DM, dementia, chronic systolic heart failure, CVA praosxismal Afib and PE presented with progressivly worsening shortness of breath, running nose and cough. He was not able to give any cohe rent history therefore most of the history was obtained from the medical record and from patient's . Pt was is on home hospice and DNR. He is being seen by adoption counselor, Dr Taylor for his P AFib and conservatively management per request of patient's . Echo done 03/2014 showed severe dilated CMP with 4 chamber dilation, EF 10%, severe MR, moderately severe TR, pulm HTN with RVSP 62mmHg, trace pericardial effusion, left pleural effusion. Enroute to the Ed pt was given adenosine by EMS and one shock of 100 J as hear rate was in the 200s. On arriveal to the ED pt was commenced on cardazem drip. Had elevated cardiac enzymes of 0.129 with heart rate converted to NSR. -Seizure disorder CT of the brain Keppra IV Ativan -Paroxysmal atrial fibrillation Continue beta blockers and present and a tanesha Anticoagulation TSH, lipid panel Cardiology consult - Acute and chronic systolic heart failure Strict inputs and outputs, 2 g sodium diet, Daily weights, Echocardiogram -NSTEMI Heparin drip Aspirin, beta tanesha, statins, -Sinusitis Axithromycin - Dementia DVT ppx with heparin and GI with Pepcid Time spent 40 min Pt is DNR Subjective Date of service: 06/19/18 Principal diagnosis: paroxysmal atrial fibrillation, NSTEMI, acute on chronic systolic HF Interval history: Patient seen and examined. Discussed with patient's nurse. Patient had an episode of V. tach last night. Confused and wanted to jump out of the bed. Code MET called. Adenosine 6 and 12 given. Heart rate converted to normal. Currently restrained. Still pleasantly confused. Unable to give any cogent history. Patient was apparently to have had a seizure grand mal today. Was given Ativan. Seizure resolved. No rashes of before. Objective - Exam Narrative Exam: Constitutional: Confused and demented. In no distress Head: Normocephalic atraumatic Eyes: Pupils are equal round and reactive to light Nose: Rhinorrhea. No enlarged turbinates, no septal deviation. Mouth: Moist mucous membranes. Neck: Supple no thyromegaly. No bruit. No JVD Heart: Irregularly irregular . S1 and S2 normal. No rubs murmurs or gallop Lungs: Clear to auscultation bilaterally. no rales or rhonchi Abdomen: Soft, nontender. Bowel sound are present. Extremities: No edema, no cyanosis, no clubbing. Neuro: Alert oriented Oriented x1. No focal sensory or motor deficit. Skin: No rashes or hyperpigmented spots Musculoskeletal system: No joint pain or swelling Hematological: No petechia or subcutanous hemorrhages. Immunological: No multiple septic spots on the skin Lymphatic: No generalized lymphadenopathy Psychiatry: Confused . - Constitutional Vitals: Vital Signs - 12hr 06/19/18 06/19/18 06/19/18 07:40 08:00 08:12 Temperature 97.9 F Pulse Rate Pulse Rate [ 56 L 68 Bilateral Throughout] Respiratory 18 Rate Respiratory 16 18 Rate [Bilateral Throughout] Blood Pressure 132/76 O2 Sat by Pulse 92 Oximetry 06/19/18 06/19/18 10:00 11:54 Temperature 97.8 F Pulse Rate 73 Pulse Rate [ Bilateral Throughout] Respiratory 18 Rate Respiratory Rate [Bilateral Throughout] Blood Pressure 92/58 O2 Sat by Pulse Oximetry - Labs CBC & Chem 7: 06/19/18 04:36 06/19/18 04:36 Labs: Abnormal lab results 06/18/18 06/19/18 06/19/18 Range/Units 23:25 04:36 04:36 WBC 14.1 H (4.5-11.0) K/mm3 RBC 3.20 L (3.65-5.03) M/mm3 Hgb 10.7 L (11.8-15.2) gm/dl Hct 33.2 L (35.5-45.6) % MCV 104 H (84-94) fl MCH 34 H (28-32) pg Lymph % (Auto) 4.3 L (13.4-35.0) % Coke % (Auto) 8.7 H (0.0-7.3) % Lymph # 0.6 L (1.2-5.4) K/mm3 Coke # 1.2 H (0.0-0.8) K/mm3 Seg Neutrophils % 86.8 H (40.0-70.0) % Seg Neutrophils # 12.2 H (1.8-7.7) K/mm3 Heparin Anti-Xa Level 0.72 H (0.3-0.7) U.I./ml BUN 47 H (9-20) mg/dL Glucose 143 H (75-100) mg/dL AST 64 H (5-40) units/L Albumin 3.2 L (3.9-5) g/dL
[2018-06-19] MEDS: KEPPRA 750 MG in NACL 0.9% 100 ML IV SCH (23:34)
[2018-06-20] MEDS: HEPARIN/ 0.45% NACL-25,000 UNIT/500 ML 25,000 UNIT/500 ML BAG IV SCH (05:10)
[2018-06-20] MEDS: TESSALON PERLES PO SCH (05:10)
[2018-06-20 06:21] LABS: Hematocrit 34.3 % (35.5-45.6); Hemoglobin 11.3 gm/dl (11.8-15.2); Mean Corpuscular HGB Conc 33 % (32-34); Mean Corpuscular Volume 102 fl (84-94); Platelet Count 240 K/mm3 (140-440); Red Blood Count 3.37 M/mm3 (3.65-5.03); Red Cell Distribution Width 14.1 % (13.2-15.2)
[2018-06-20 06:38] LABS: Alanine Aminotransferase 20 units/L (7-56); Albumin 3.2 g/dL (3.9-5); BUN/Creatinine Ratio 41; Blood Urea Nitrogen 53 mg/dL (9-20); Calcium 8.5 mg/dL (8.4-10.2); Hemolysis Index 6
[2018-06-20 07:13] LABS: Basophils % (Manual) 0 % (0.0-1.8); Eosinophils % (Manual) 0 % (0.0-4.3); Total Cells Counted 100
[2018-06-20 07:14] LABS: Anisocytosis 1+; Platelet Estimate Cons
[2018-06-20] MEDS: PULMICORT IH SCH (08:43)
[2018-06-20] MEDS: BROVANA NEBU IH SCH (08:44)
[2018-06-20] MEDS: CORDARONE PO SCH (09:35)
[2018-06-20] MEDS: ALDACTONE PO SCH (09:43)
[2018-06-20] MEDS: HALFPRIN EC PO SCH (09:44)
[2018-06-20] MEDS: COREG PO SCH (09:44)
[2018-06-20] MEDS: ZESTRIL PO SCH (09:45)
[2018-06-20] MEDS: SOLU-Medrol IV SCH (09:45)
[2018-06-20] MEDS: LASIX IV SCH (09:46)
[2018-06-20] MEDS ORDERED: ZITHROMAX PO SCH (10:00)
[2018-06-20] MEDS: KEPPRA 750 MG in NACL 0.9% 100 ML IV SCH (10:06)
--- NOTE | 2018-06-20 10:09 | Progress Note ---
Assessment and Plan Patient is doing better today. Currently in sinus rhythm. No further complex arrhythmias. Continue current management. - Patient Problems (1) Acute on chronic systolic heart failure Current Visit: Yes Status: Acute (2) NSTEMI (non-ST elevated myocardial infarction) Current Visit: Yes Status: Acute (3) Paroxysmal SVT (supraventricular tachycardia) Current Visit: Yes Status: Acute (4) Moderate to severe mitral regurgitation Current Visit: Yes Status: Chronic (5) NSVT (nonsustained ventricular tachycardia) Current Visit: No Status: Acute (6) COPD (chronic obstructive pulmonary disease) Current Visit: No Status: Chronic Subjective Date of service: 06/20/18 Principal diagnosis: paroxysmal atrial fibrillation, NSTEMI, acute on chronic systolic HF Interval history: Patient is more alert today. Denies chest pain or difficulty breathing. He is having periods of confusion hence is being restrained. Objective Vital Signs Temp Pulse Pulse Pulse Resp Resp Resp 06/20/18 09:45 74 06/20/18 09:44 74 06/20/18 09:43 74 06/20/18 08:38 97.7 F 18 06/20/18 04:07 98.6 F 74 19 06/19/18 23:37 81 06/19/18 23:00 06/19/18 22:56 98.4 F 88 20 06/19/18 22:09 70 16 06/19/18 22:08 06/19/18 22:00 68 80 18 20 06/19/18 21:09 18 06/19/18 19:57 97.5 F L 81 16 06/19/18 19:53 80 06/19/18 18:31 97.7 F 18 06/19/18 11:54 97.8 F 18 BP Pulse Ox 06/20/18 09:45 132/80 06/20/18 09:44 132/80 06/20/18 09:43 132/80 06/20/18 08:38 132/80 06/20/18 04:07 136/87 90 06/19/18 23:37 149/98 06/19/18 23:00 92 06/19/18 22:56 156/101 86 06/19/18 22:09 06/19/18 22:08 98 06/19/18 22:00 98 06/19/18 21:09 03/29/19 19:57 149/98 95 03/29/19 19:53 06/19/18 18:31 118/76 06/19/18 11:54 92/58 - Physical Examination General: No Apparent Distress HEENT: Positive: PERRL, Normocephaly, Mucus Membranes Moist Neck: Positive: neck supple, trachea midline Cardiac: Positive: Reg Rate and Rhythm Lungs: Positive: clear to auscultation Neuro: Positive: Grossly Intact Abdomen: Positive: Soft. Negative: Tender Skin: Negative: Rash, Wound Musculoskeletal: No Pain Extremities: Absent: edema - Labs and Meds Cardiac Enzymes 06/20/18 Range/Units 05:17 AST 44 H (5-40) units/L CBC 06/20/18 Range/Units 05:17 WBC 12.4 H (4.5-11.0) K/mm3 RBC 3.37 L (3.65-5.03) M/mm3 Hgb 11.3 L (11.8-15.2) gm/dl Hct 34.3 L (35.5-45.6) % Plt Count 240 (140-440) K/mm3 Comprehensive Metabolic Panel 06/20/18 Range/Units 05:17 Sodium 141 (137-145) mmol/L Potassium 4.3 (3.6-5.0) mmol/L Chloride 100.1 (98-107) mmol/L Carbon Dioxide 28 (22-30) mmol/L BUN 53 H (9-20) mg/dL Creatinine 1.3 (0.8-1.5) mg/dL Glucose 131 H (75-100) mg/dL Calcium 8.5 (8.4-10.2) mg/dL AST 44 H (5-40) units/L ALT 20 (7-56) units/L Alkaline Phosphatase 113 (35-129) units/L Total Protein 6.3 (6.3-8.2) g/dL Albumin 3.2 L (3.9-5) g/dL - Imaging and Cardiology EKG: report reviewed, image reviewed Echo: report reviewed ( 03/2014 showed severe dilated CMP with 4 chamber dilation, EF 10%, severe MR, moderately severe TR, pulm HTN with RVSP 62mmHg, trace pericardial effusion, left pleural effusion. ) - EKG Sinus rhythms and dysrhythmias: sinus rhythm
[2018-06-20] MEDS: SPIRIVA IH SCH (11:11)
--- NOTE | 2018-06-20 16:25 | Discharge Summary ---
Providers - Providers Date of Admission: 06/17/18 04:50 Date of discharge: 06/20/18 Attending physician: ELKIN WOODS 06/17/18 02:55 Consult to Physician [CONS] Stat Comment: Dr. Esteban spoke with Dr. Noland @ [phone] Consulting Provider: ANTHONY NOLAND Physician Instructions: Reason For Exam: chest pain, elevated troponin, atrial flutter RVR Primary care physician: ELKIN WOODS Hospitalization Reason for admission: acute on chronic systolic HF, paroxysmal atrial fibrillation, NSTEMI Condition: Stable Pertinent studies: Cardiac enzymes elevated EKG - AFIB ECHO 35-40% LVEF Procedures: none Hospital course: Patient is an 83 y/o male who has a history of T2DM, dementia, chronic systolic heart failure, CVA paroxysmal Afib and PE presented with progressivly worsening shortness of breath, running nose and cough. He was not able to give any coherent history therefore most of the history was obtained from the medical record and from patient's . Pt was on home hospice and DNR. He is being seen by glue sprayer, Dr Taylor for his P AFib and conservatively management per request of patient's . Echo done 03/2014 showed severe dilated CMP with 4 chamber dilation, EF 10%, severe MR, moderately severe TR, pulm HTN with RVSP 62mmHg, trace pericardial effusion, left pleural effusion. Enroute to the Ed pt was given adenosine by EMS and one shock of 100 J as hear rate was in the 200s. On arriveal to the ED pt was commenced on cardazem drip. Had elevated cardiac enzymes of 0.129 with heart rate converted to NSR. In the emergency department he was continued on IV Cardizem drip to control heart rates which subsequently was in the 60s. He had no chest pain. He acute episode SEVERE confusion. This is deemed to be an exacerbation of his dementia from being in a new environment . Mechanical restraint applied. His current medication continued. Had an episode of seizure-like activity. Ativan was given. Seizure resolved. Patient continues to be in restraint. His mentation is back to baseline and was taken off of restraint. He is not on anticoagulation because of fall risk. This was discussed with cardiology, Dr. Pool Valdez who agreed with not placing pt on anticoagulation because of risk of fall. Discussed with patient . Patient will transferred back home. He is to follow with me as his Primary care physician in one week and follow with glue sprayer in 2weeks Disposition: DC-50 TO HOSPICE (HOME) Time spent for discharge: 35 min - Discharge Diagnoses (1) Acute on chronic systolic heart failure Status: Acute (2) Atrial flutter with rapid ventricular response Status: Acute (3) NSTEMI (non-ST elevated myocardial infarction) Status: Acute (4) Paroxysmal SVT (supraventricular tachycardia) Status: Acute (5) SVT (supraventricular tachycardia) Status: Acute (6) Shortness of breath Status: Acute Core Measure Documentation - Palliative Care Palliative Care/ Comfort Measures: Hospice Care - VTE Discharge Requirements Contraindication No Overlap Therapy order at DC: Medical Contraindication - Acute [place] Discharge Requirements Aspirin at discharge: Yes KRISTIAN/ARB for LVSD if EF <40%: Yes Beta tanesha at discharge: Yes Statin for LDL = or >100 mg/dl on DC: Yes Exam - Physical Exam Narrative exam: Constitutional: Confused and demented. In no distress Head: Normocephalic atraumatic Eyes: Pupils are equal round and reactive to light Nose: Rhinorrhea. No enlarged turbinates, no septal deviation. Mouth: Moist mucous membranes. Neck: Supple no thyromegaly. No bruit. No JVD Heart: Irregularly irregular . S1 and S2 normal. No rubs murmurs or gallop Lungs: Clear to auscultation bilaterally. no rales or rhonchi Abdomen: Soft, nontender. Bowel sound are present. Extremities: No edema, no cyanosis, no clubbing. Neuro: Alert oriented Oriented x1. No focal sensory or motor deficit. Skin: No rashes or hyperpigmented spots Musculoskeletal system: No joint pain or swelling Hematological: No petechia or subcutanous hemorrhages. Immunological: No multiple septic spots on the skin Lymphatic: No generalized lymphadenopathy Psychiatry: Confused . - Constitutional Vitals: Temp Pulse Resp BP Pulse Ox 97.7 F 74 18 132/80 94 06/20/18 08:38 06/20/18 09:45 06/20/18 08:54 06/20/18 09:45 06/20/18 08:44 Plan Activity: fall precautions Weight Bearing Status: Non-Weight Bearing Diet: low fat, low salt Follow up with: ELKIN WOODS MD [Primary Care Provider] - 3-5 Days IDALMIS JAIN MD [Staff Physician] - 7 Days Prescriptions: Aspirin EC [Aspirin Enteric Coated TAB] 81 mg PO DAILY #30 tablet Arformoterol Nebu [Brovana Nebu] 15 mcg IH Q12HRT #60 ml Amiodarone [Cordarone 200 MG TAB] 200 mg PO BID #60 tablet Carvedilol [Coreg] 3.125 mg PO BID #60 tablet Furosemide [Lasix TAB] 40 mg PO BID #60 tablet Prednisone [predniSONE (Tammy) ER TAB] 5 mg PO QDAY #3 tablet. Benzonatate [Tessalon Perles] 100 mg PO Q8HR #90 capsule Lisinopril [Zestril TAB] 10 mg PO QDAY #30 tablet
[2018-06-20 20:03] VITALS: BP 142/88
== END 2018-06-20 19:00 | disposition hospice, home (50) | DRG 280 ==
LOC: ED 00:18 → CC1 04:50 → 4A 16:40
PROVIDERS: ADMIT Internal Medicine; ATTEND Family Medicine
PROC: 4A033R1 Measurement of Arterial Saturation, Peripheral, Percutaneous Approach (ICD-10-PCS; principal; 2018-06-17)
PROC: 5A09357 Assistance with Respiratory Ventilation, Less than 24 Consecutive Hours, Continuous Positive Airway Pressure (ICD-10-PCS; 2018-06-17)
DX: I21.A1 Myocardial infarction type 2 (principal); I50.23 Acute on chronic systolic (congestive) heart failure; J18.1 Lobar pneumonia, unspecified organism; I48.92 Unspecified atrial flutter; I42.0 Dilated cardiomyopathy; I31.3 Pericardial effusion (noninflammatory); I47.1 Supraventricular tachycardia; I47.2 Ventricular tachycardia; I48.91 Unspecified atrial fibrillation; I11.0 Hypertensive heart disease with heart failure; E11.9 Type 2 diabetes mellitus without complications; J44.9 Chronic obstructive pulmonary disease, unspecified; E78.5 Hyperlipidemia, unspecified; I48.0 Paroxysmal atrial fibrillation; G40.909 Epilepsy, unspecified, not intractable, without status epilepticus; G30.9 Alzheimer's disease, unspecified; F02.80 Dementia in other diseases classified elsewhere, unspecified severity, without behavioral disturbance, psychotic disturbance, mood disturbance, and anxiety; Z66 Do not resuscitate; I27.20 Pulmonary hypertension, unspecified; I95.9 Hypotension, unspecified; J32.9 Chronic sinusitis, unspecified; I08.3 Combined rheumatic disorders of mitral, aortic and tricuspid valves; Z88.2 Allergy status to sulfonamides; Z86.73 Personal history of transient ischemic attack (TIA), and cerebral infarction without residual deficits; Z86.718 Personal history of other venous thrombosis and embolism; Z79.01 Long term (current) use of anticoagulants; Z86.711 Personal history of pulmonary embolism
CPT/HCPCS: 36415; 71045; 80048; 80053; 80061; 82803; 83735; 84132; 84484; 85007; 85014; 85018; 85025; 85049; 85520; 85610; 85730; 93005; 93010; 93306; 94640; 94760; 96365; 96366; 96375; G0378; A9270-GY; J0282; J0456; J1200; J1644; J1940; J1953; J2920; J7040; J7050; J7060